=== PATIENT | male | born 1945 | race Caucasian/White ===

== ENCOUNTER 2016-12-23 19:51 | Inpatient (IN) | payer MEDICARE, BC ==
[~2016-12-23] VITALS: Ht 177.8 cm; Wt 111.4 kg
--- NOTE | ~2016-12-23 | CO ---
Unit #: [id number] #: [id number] Patient: CONCHITA ROWLAND [id number] [address] [place], [place] [address] [id number] I MR#: [id number] NAME: CONCHITA ROWLAND ROOM: 308 Age: 71 Sex: M Admission Date: 12/23/2016 : 1945 Attending Physician: Clemencia Mendenhall M.D. Primary Care Physician: Pedro Stockton D.O. CONSULTATION REPORT REASON FOR CONSULTATION COPD and pneumonia. HISTORY OF PRESENT ILLNESS Mr. Rowland is a 71-year-old gentleman, known to me with COPD. He had had significant shortness of breath, underwent pulmonary rehab and actually was doing better. Two days prior to admission. He had this anterior chest heaviness. He denied fever, sputum production, hemoptysis, or wheezing. Chest x-ray, may have showed a faint right lower lobe infiltrate, but because of his lack of symptoms he underwent CT angiography. It revealed no evidence of PE. There was evidence of right lower lobe infiltrate and some adenopathy consistent with his known diagnosis of leukemia. He does feel better today after treatment. PAST MEDICAL HISTORY Remarkable for COPD, leukemia coronary artery disease, arthritis obstructive sleep apnea on CPAP, hypertension, depression, hyperlipidemia. ALLERGIES No known medical allergies. MEDICATION She is on Symbicort twice a day, improves once a day as needed; albuterol, he has no oxygen. Other medications include, Howes, Pravachol, lisinopril, Norvasc, Neurontin, Wellbutrin, Cardura, aspirin, niacin, and a variety of other vitamins like medications. FAMILY HISTORY No familial lung disease. REVIEW OF SYSTEMS Quit smoking 31 years ago. Lives with his . Review of systems otherwise feels fairly well. No palpitations, abdominal pain, melena, hematochezia, hematemesis, hematuria, dysuria, focal weakness, paresthesias, leg pain, swelling. Further review of systems negative. PHYSICAL EXAMINATION GENERAL: Reveals a patient, who is in no acute distress on oxygen sitting on a side of the bed, eating lunch. VITAL SIGNS: She is afebrile. Pulse 76, respiratory rate 16, blood pressure is 119/50, 5 foot 10, 242 pounds. BMI is 34. HEENT: Pupils are equal, round, and reactive to light. Sclerae anicteric. Head atraumatic. He has natural teeth. Better in reasonable Unit #: [id number] #: [id number] Patient: CONCHITA ROWLAND dentition. NECK: Supple. No supraclavicular or cervical adenopathy appreciated. Mucous membranes moist. CHEST: Decreased breath sounds. No definite consolidation, wheeze or stridor. CARDIAC: Reveals distant heart tones. Regular rate and rhythm. No pathologic murmur, rub, or gallop. ABDOMEN: Soft and nontender. No hepatomegaly or rebound. EXTREMITIES: Reveal trace edema at best. No calf tenderness. NEUROLOGIC: Grossly intact. No focal motor or sensory deficits. SKIN: Warm and dry without rash or diaphoresis. LABORATORY DATA As above with likely right lower lobe pneumonia. His CMP was normal. BNP 103, INR 1.1. Cardiac enzymes negative. White blood cell count 12.4, hemoglobin 8.7, platelet count normal. Blood cultures performed and are pending. Rhythm strips or sinus. EKG no definite acute ischemic changes. IMPRESSION 1. Right lower lobe community-acquired pneumonia. 2. Acute respiratory failure currently on oxygen. 3. Chronic obstructive pulmonary disease. 4. Leukemia. 5. Medical problems listed above. PLAN He is clinically improved. We will continue his inhaled bronchodilators and IV antibiotics. We will check room air oxygenation needs, review my office notes, and continue CPAP. Thank you very much for allowing me to participate in the care of Mr. Rowland. Dictated by... Sang Koo M.D. LIZETTE/wilbert TD: 12/25/2016 12:39 JOB #: [id number] CONSULTATION REPORT Page 1 of 1 X Sang Koo MD X CONSULTATION REPORT
--- NOTE | ~2016-12-23 | EKG ---
PATIENT: CONCHITA DAMON UNIT #: [id number] Ventricular Rate: 68 BPM Atrial Rate: 68 BPM P-R Interval: 246 ms QRS Duration: 114 ms Q-T Interval: 390 ms QTC Calculation(Bezet): 414 ms P [place]: 46 degrees Calculated R [place]: 17 degrees Calculated T [place]: 12 degrees Diagnosis Line: Sinus rhythm with 1st degree A-V block Diagnosis Line: Non-specific intra-ventricular conduction delay Diagnosis Line: Borderline ECG Diagnosis Line: No previous ECGs available Diagnosis Line: Confirmed by LENNY KEENAN MD ([id number]) on Diagnosis Line: 12/24/2016 4:45:47 PM INTERPRETING MD: CAROLEE
--- NOTE | ~2016-12-23 | CT16 ---
[facility] A Service of [facility] & [facility] RADIOLOGY TEXT RESULTS PATIENT: CONCHITA DAMON LOCATION: C3A 308- : 47 UNIT #: [id number] AGE: [address]: Addis Cheung MD SEX: M ORDER DR: [id number] [facility] [address] [facility] [place]. [place], [place] [address] [id number] MR#: [id number] Acc #: [id number] NAME: CONCHITA DAMON : 1945 SEX: M STUDY DATE/TIME: 12/23/2016 22:57 UNIT: C3A PCU ROOM: 308 STUDY DESCRIPTION: CT Angio Chest for PE Attending Physician: Addis Cheung M.D. Ordering Physician: Chico Rubin M.D. Primary Care Physician: Pedro Stockton D.O. MEDICAL IMAGING REPORT This report is preliminary unless electronic signature is present EXAM CT angiogram chest with IV contrast HISTORY Chest pain for 1 day. Elevated D-dimer. TECHNIQUE IV contrast and CT angiogram of the chest was performed with 3-D reconstructions. This CT exam was performed with one or more of the following radiation dose reduction techniques: automatic exposure control, adjustment of mA and/or kV according to patient size, and iterative reconstruction. FINDINGS There is no evidence of pulmonary embolus. Exam sensitivity is partly limited by motion artifact compromising evaluation of the lower lobe pulmonary arteries. Normal-caliber pulmonary arteries bilaterally. Moderate multifocal patchy interstitial infiltrates in the bilateral lower lobes, could be infectious or inflammatory. Moderate bilateral axillary adenopathy, and [id number] adenopathy in the right supraclavicular fossa, upper mid and lower mediastinum, and bilateral rodri, and in the upper abdomen. Dairy Nutritionist nodes measure 2.9 cm in the right axilla, 2.2 cm left axilla, 1.6 cm right paratracheal, 2 cm mid right hilum, and 2.6 cm in the portocaval space. Patient history indicates leukemia and this could be the etiology of these nodes. No adenopathy is very similar to CT 03/04/2016. IMPRESSION 1. No pulmonary embolus. 2. Moderate patchy multifocal predominately interstitial infiltrates in the bilateral lower lobes, right greater than left could be STS. [facility] A Service of [facility] RADIOLOGY TEXT RESULTS PATIENT: CONCHITA DAMON LOCATION: C3A 308-01 : [birth year] UNIT #: [id number] AGE: [address]: Addis Cheung MD SEX: M ORDER DR: infectious or inflammatory. 3. Moderate adenopathy in the chest or upper abdomen is similar to CT 03/04/2016. This could be secondary to the patient's reported history of leukemia. Dictated by... Rory Rousseau M.D. THIS IS AN ELECTRONICALLY VERIFIED REPORT Rory Rousseau M.D. at 12/24/2016 6:14 AM YVETTE/chucho TD: 12/24/2016 05:54 JOB #: [id number] MEDICAL IMAGING REPORT Page 1 of 1 COPY
--- NOTE | ~2016-12-23 | DS ---
Unit #: [id number] #: [id number] Patient: CONCHITA DAMON [id number] [address] [address] [id number] I MR#: [id number] NAME: CONCHITA DAMON ROOM: 308 Age: 71 Sex: M Admission Date: 12/23/2016 : 1945 Discharge Date: 12/25/2016 Attending Physician: Clemencia Mendenhall M.D. Primary Care Physician: Pedro Stockton D.O. DISCHARGE SUMMARY REASON FOR ADMISSION Community-acquired pneumonia. HISTORY OF PRESENT ILLNESS/HOSPITAL COURSE Patient is a very pleasant 71-year-old male with a prior history of coronary artery disease, CML and COPD. Was admitted secondary to community-acquired pneumonia. Patient, through hospital course, underwent routine cardiac enzymes, which were negative, as well as routine laboratory studies that did show a mildly elevated white count, which was noted. He underwent a CTA chest, which did show bilateral lower lobe infiltrates, right greater than left. Appropriate adenopathy was also noted secondary to patient's prior history of CML. Routine laboratory studies were also ascertained, including blood cultures, which did not show any acute bacterial growth. We placed consultation to pulmonary services, as well as oncology services. From an oncology standpoint patient did undergo iron studies, which did reveal decreased iron. Therefore, he did receive IV iron prior to discharge, but appropriate outpatient followup was recommended with Dr. Palumbo at time of discharge. Dr. Koo recommended followup in 6 to 8 weeks for repeat chest x-ray in his office. Prescriptions for Zithromax, as well as Ceftin, were given prior to discharge. At this point in time patient is clinically stable for discharge home. FINAL DISCHARGE DIAGNOSES 1. Community-acquired pneumonia. 2. Acute hypoxic respiratory failure on admission, now resolved. 3. Chronic myelogenous leukemia. 4. Coronary artery disease. 5. Hypertension. 6. Chronic obstructive pulmonary disease. FINAL DISCHARGE MEDICATIONS 1. Tylenol 650 mg p.o. q.6 p.r.n. 2. ProAir HFA q.6 p.r.n. 3. Neurontin 600 mg p.o. q.6. 4. Ellipta 2 puffs daily. 5. Norvasc 5 mg p.o. daily. 6. Pravastatin 40 mg p.o. daily. 7. Cardura 8 mg daily. 8. Lisinopril 10 mg daily. Unit #: [id number] #: [id number] Patient: CONCHITA DAMON 9. Multivitamin daily. 10. Aspirin 81 mg daily. 11. [place] 7.5/325 one tablet p.o. b.i.d. p.r.n. 12. Zithromax 250 mg p.o. daily x4 days. 13. Ceftin 500 mg 1 tablet p.o. b.i.d. x5 days. DISCHARGE CONDITION Stable. DISCHARGE DISPOSITION Home. FOLLOW UP Followup as outlined above. Dictated by... Isha Carney/alf TD: 12/27/2016 18:19 JOB #: [id number] DISCHARGE SUMMARY Page 1 of 1 X Clemencia Mendenhall MD X DISCHARGE SUMMARY
--- NOTE | ~2016-12-23 | CR72 ---
[facility] A Service of [facility] & [facility] RADIOLOGY TEXT RESULTS PATIENT: CONCHITA DAMON LOCATION: A 308- : 47 UNIT #: [id number] AGE: [address]: Clemencia Mendenhall MD SEX: M ORDER DR: [id number] [facility] [address] [facility]. [place], [place] [address] [id number] MR#: [id number] #: [id number] NAME: CONCHITA DAMON : 1945 SEX: M STUDY DATE/TIME: 12/23/2016 20:22 UNIT: A U ROOM: [facility] STUDY DESCRIPTION: CR Chest Single View Portable Attending Physician: Addis Cheung M.D. Ordering Physician: Chico Rubin M.D. Primary Care Physician: Pedro Stockton D.O. MEDICAL IMAGING REPORT This report is preliminary unless electronic signature is present EXAM Portable chest HISTORY Shortness of air, chest pain, symptoms since yesterday. COMPARISON 03/27/2010 FINDINGS Portable view of the chest demonstrates patchy airspace opacity right lower lobe may represent some early pneumonia or focal edema. No effusions. Heart size within normal limits in this patient post median sternotomy. The right hilar calcifications compatible with prior granulomas disease. No pneumothorax. Dictated by... Marisela Vázquez M.D. THIS IS AN ELECTRONICALLY VERIFIED REPORT Marisela Vázquez M.D. at 12/24/2016 6:55 PM Delma TD: 12/24/2016 04:35 JOB #: [id number] MEDICAL IMAGING REPORT Page 1 of 1 COPY
--- NOTE | ~2016-12-23 | HP ---
Unit #: [id number] #: [id number] Patient: CONCHITA DAMON 194092 [address] [address] [id number] MR#: [id number] NAME: CONCHITA DAMON ROOM: Age: 71 Sex: M Admission Date: 12/23/2016 : 1945 Attending Physician: Chico Rubin M.D. Primary Care Physician: Pedro Stockton D.O. HISTORY AND PHYSICAL CHIEF COMPLAINT Atypical chest pain with right lower lobe infiltrate. HISTORY OF PRESENT ILLNESS This pleasant 71-year-old male with CAD, chronic myelomonocytic leukemia, and COPD is admitted for probable community-acquired pneumonia. The patient states that he was well until three days prior to admission when he developed chest tightness with a pleuritic component. Notes increasing shortness of breath, fatigue, and weakness. He does have some head congestion but denies true cough, fevers, sweats, or chills. He presented to this emergency department tonight afebrile. Chest x-ray does show a right lower lobe infiltrate. Initially, patient did have reproducible chest wall tenderness which has resolved after receiving morphine. EKG and cardiac enzymes are negative, and chest x-ray does show a right lower lobe infiltrate. In the ER, he was treated with aspirin, morphine, Zithromax, and Rocephin, and referred for admission. A CTA is planned. PAST MEDICAL HISTORY 1. Non-STEMI June 2003 with significant LAD and RCA disease and with normal LV function. The patient is status post two-vessel CABG in 2003. 2. Chronic myelomonocytic leukemia not requiring treatment with chronic anemia. 3. DJD and peripheral neuropathy. 4. Obstructive sleep apnea, on CPAP. 5. COPD. 6. Hypertension. 7. Depression. 8. Hyperlipidemia. 9. Right elbow surgery. 10. Arthroscopic knee surgery. 11. Patient is legally blind. ALLERGIES No known drug allergies. HOME MEDICATIONS 1. [place] 7.5/325 b.i.d. p.r.n. 2. Pravachol 40 mg daily. 3. Lisinopril 10 mg daily. 4. Norvasc 5 mg daily. 5. Neurontin 600 mg q.i.d. Unit #: [id number] #: [id number] Patient: CONCHITA DAMON 6. Wellbutrin 150 mg daily. 7. Cardura 8 mg daily. 8. Aspirin 81 mg daily. 9. Niacin 500 mg daily. 10. Fish oil 300 mg daily. 11. Multivitamins daily. 12. ProAir q.i.d. p.r.n. 13. Incruse Ellipta 2 puffs daily. FAMILY HISTORY CAD. SOCIAL HISTORY The patient lives with his . He stopped smoking 31 years ago. He drinks occasional alcohol. REVIEW OF SYSTEMS Notable for chest discomfort, weakness, shortness of breath, COPD, obstructive sleep apnea, CAD, anemia, leukemia, hyperlipidemia, hypertension, above-mentioned surgeries. All other systems were reviewed and are otherwise negative. PHYSICAL EXAMINATION GENERAL: A pleasant, moderately obese, 68-year-old male currently in no acute distress. VITAL SIGNS: Temperature 98, pulse 70, respirations 16, blood pressure 151/49, and O2 saturation 95% initially but was 93% on 2 liters when I saw the patient. HEENT: Eyes PERRLA. Extraocular muscles are intact. Pharynx is benign. NECK: Supple without adenopathy or thyromegaly. CHEST: Clear. Patient initially had chest wall tenderness which reproduced his chest pain. I am examining him after morphine, and his chest wall tenderness has resolved. CARDIAC: Normal S1 and S2 without S3, S4, or murmur. ABDOMEN: Bowel sounds are present. No hepatosplenomegaly, tenderness, or masses. EXTREMITIES: Without clubbing, cyanosis, or edema. Pedal pulses are present. NEUROLOGIC: Patient is awake, alert, and oriented. Cranial nerves are intact. Equal strength throughout. DIAGNOSTIC STUDIES LABORATORY: Hematocrit is 28.3, down from 30.5 last year, MCV 99.1, white blood count is 12.7 with increased lymphocytes and monocytes noted. Cardiac markers are negative. Coags are normal. Elevated D-dimer. SMA-12 normal. BNP is 103 which is minimally elevated. IMAGING: Chest x-ray right lower lobe infiltrate. CARDIOLOGY: EKG sinus rhythm, rate 68, fairly normal appearing except for an interventricular conduction delay. ASSESSMENT 1. Atypical chest pain with right lower lobe infiltrate likely representing community-acquired pneumonia. However, the patient does not have a cough or fever. 2. CAD, status post two-vessel CABG in 2003 with normal ejection fraction. No ischemia on EKG and first set of cardiac enzymes is Unit #: [id number] #: [id number] Patient: CONCHITA DAMON negative. 3. Essential hypertension. 4. Chronic myelomonocytic leukemia, currently not being treated, with chronic anemia followed by Dr. Mehrdad Palumbo. 5. DJD and peripheral neuropathy with chronic pain. 6. Obstructive sleep apnea and COPD. PLANS 1. Rocephin, Zithromax, and albuterol pending cultures. 2. CTA of the chest is planned. 3. DVT prophylaxis. 4. Further plans after CTA results. 1. Dictated by Addis Cheung M.D. AML/am TD: 12/23/2016 22:19 JOB #: [id number] HISTORY AND PHYSICAL Page 1 of 1 X Addis Cheung MD X HISTORY AND PHYSICAL
--- NOTE | ~2016-12-23 | CO ---
Unit #: [id number] #: [id number] Patient: CONCHITA ROWLAND [id number] [address] [address] [id number] I MR#: [id number] NAME: CONCHITA ROWLAND ROOM: 308 Age: 71 Sex: M Admission Date: 12/23/2016 : 1945 Attending Physician: Clemencia Mendenhall M.D. Primary Care Physician: Pedro Stockton D.O. Consultation Date: 12/24/2016 CONSULTATION REPORT PRIMARY CARE PHYSICIAN Pedro Stockton D.O. REASON FOR CONSULTATION CLL and chronic myelomonocytic leukemia, please evaluate. HISTORY OF PRESENT ILLNESS Mr. Conchita Rowland is 71-year-old with a longstanding history of chronic lymphatic leukemia. More recently, on a bone marrow aspiration and biopsy on 10/09/2015, he was found to have chronic myelomonocytic leukemia. When seen in the office last on 10/14/2016, he was anemic with a hemoglobin of 9.6. He is now admitted with a 2 to 3 day history of retrosternal chest pain, which worsens with breathing with CT angio of the chest showing no pulmonary emboli, but bilateral infiltrates present in similar fashion since 02/2016 when he last had a CT angio of the chest. He presented to the emergency room thinking that this may be a coronary event given his history of coronary artery disease. His troponin level was less than 0.05 and CK-MB was 1.9. His BNP was 103, and repeat troponin and CK-MB were similarly low. Today, he feels somewhat better. 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 There was possibly atypical small B lymphocytic infiltrate less than 5% of marrow cells which is CD5 positive. Cytogenetics revealed a 9q abnormality typical of myeloid neoplasms. Other medical problems include degenerative joint disease, peripheral neuropathy which he takes Neurontin, obstructive sleep apnea, hypertension, depression and COPD. ALLERGIES He has no known medication allergies. 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 HOME MEDICATIONS Unit #: [id number] #: [id number] Patient: CONCHITA ROWLAND Include [place] 7.5/325 b.i.d. p.r.n., Pravachol 40 mg daily, lisinopril 10 mg daily, Norvasc 5 mg daily, Neurontin 600 mg q.i.d., Wellbutrin 150 mg daily, Cardura 8 mg daily, aspirin 81 mg daily, niacin 500 mg daily, fish oil 300 mg daily, multivitamins, ProAir. FAMILY HISTORY Notable for coronary artery disease. No blood disorders. SOCIAL HISTORY Quit smoking 30 years ago. Rarely drinks any alcohol. He is . Lives his , who is at bedside. REVIEW OF SYSTEMS A 14-point review of systems were taken. CONSTITUTIONAL: Fatigue. No change in appetite and weight. 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 EARS, NOSE, MOUTH, AND THROAT: Negative. CARDIOVASCULAR: Chest pain as discussed. RESPIRATORY: As discussed. GASTROINTESTINAL: Negative. GENITOURINARY: Negative. MUSCULOSKELETAL: Knee pain which is somewhat better. ALLERGIC: Negative. NEUROLOGIC: Peripheral neuropathy. ENDOCRINE: Negative. PSYCHIATRIC: Negative. PHYSICAL EXAMINATION GENERAL: He is a pleasant, elderly man, lying in bed, currently in no distress. VITAL SIGNS: Temperature is 98.3, pulse is 76, respirations 16, blood pressure 119/50, O2 saturation is 97% on room air. HEENT: Shows pupils are equal and reactive well to light. He is pale, but not icteric. Mucous membranes are moist. NECK: Without adenopathy, JVD, or thyromegaly. CARDIOVASCULAR: First and second heart sounds are heard and regular without murmurs, gallops, or rubs. LUNGS: Chest expansion is symmetric and bilateral equal air entry. ABDOMEN: Soft and nontender. Liver and spleen are not palpable. EXTREMITIES: Warm and good pulses. No edema, cyanosis or clubbing. NEUROLOGIC: He is awake, alert, and oriented x3 without any focal findings. LYMPHATIC: He has bilateral axillary lymph nodes easily palpable, but the largest on right side measuring about 1 to 2 inches. No inguinal adenopathy. PSYCHIATRIC: Normal affect. DIAGNOSTIC STUDIES LABORATORY RESULTS: CBC with a white count of 12.7, absolute lymphocyte count is 8100, monocytes 2100, hemoglobin is 9.4, currently 8.6, platelet count is 195,000. BNP is 103. IMAGING STUDIES: CT angio of the chest was personally reviewed by me and compared with the previous CT scan done in 02/2016. He has bilateral axillary, hilar and mediastinal lymph nodes all of which are essentially stable compared to previously. ASSESSMENT AND PLAN Unit #: [id number] #: [id number] Patient: CONCHITA ROWLADN is a 71-year-old with a history of more long-standing chronic lymphatic leukemia, who has more recently has chronic myelomonocytic leukemia with anemia. He is admitted with retrosternal pleuritic type of chest pain with acute coronary event being ruled out with negative troponin, CK-MB and today he feels better on antibiotics and inhaled bronchodilators. He is anemic which is in part responsible for shortness of breathing and I discussed with him if his hemoglobin continues to decrease, he may be candidate for Procrit for chronic myelomonocytic leukemia, which is a myelodysplastic syndrome and may require a repeat bone marrow evaluation. Discussed about re-evaluation for gout and iron studies, and we discussed about the etiologies of chest pain, which probably is acute viral bronchitis. I also had a detailed discussion of chronic myelomonocytic leukemia and how this diagnosis overshadowed his previous diagnosis of CLL, which is yet to be treated or may never need to be. Thank you for allowing me to participate in his care. Dictated by... Isha Kern/wilbert TD: 12/25/2016 06:28 JOB #: [id number] CONSULTATION REPORT Page 1 of 1 X Florentin Up MD CONSULTATION REPORT
[~2016-12-23 19:51] MED LIST: AMLODIPINE BESYL5 MG PO; ASPIRIN EC81 M1 PO; ASPIRIN PO; ASPIRIN81 M1 PO; BUPROPION HCL150 M2 PO; CARDURA8 MG PO; CYMBALTA PO; FISH OIL 1,0001 EAC1 PO; FISH OIL 1,001000 M1 PO; FISH OIL300 MG PO; GABAPENTIN300 MG PO; HAIR, SKIN & N1 EAC1 PO; HYDROCODON-ACE1 EAC9 PO; INCRUSE ELLI62.5 MCG INH; LISINOPRIL PO; LISINOPRIL10 MG PO; MEDROL PO; MOBIC PO; NEURONTIN300 MG PO; NIACIN500 M1 PO; NIACIN500 M2 PO; NORVASC PO; PRAVASTATIN SOD40 MG PO; PROAIR HFA8.5 GM INH; SKELAXIN PO; SYMBICORT INH; TYLOX 5/500 CAP1 CAP PO; VICODIN 5/500 T1 TAB PO; VICODIN ES 7.51 EAC1 PO; VITAMIN D-32000 UNIT PO; ZOCOR PO
[2016-12-23 20:45] LABS: BASOPHIL% 0.2 % (0-2.5); EOSINOPHIL# 0.3 X10e3 (0-0.7); EOSINOPHIL% 2.2 % (0.0-7.0); HEMATOCRIT 28.3 % (38.0-50.0); HEMOGLOBIN 9.4 gm/dL (13.0-16.0); LYMPHOCYTE# 8.1 X10e3 (1.0-3.5); LYMPHOCYTE% 63.9 % (17.0-45.0); MEAN CELL VOLUME 99.1 FL (83-96); MEAN CORPUSCULAR HEMOGLOBIN 32.8 PG (28-34); MEAN CORPUSCULAR HGB CONC 33.1 g/dL (30-36); MEAN PLATELET VOLUME 9.1 FL (6.5-11.5); MONOCYTE# 2.1 X10e3 (0-1.0); MONOCYTE% 16.3 % (3.0-12.0); NEUTROPHIL# 2.2 X10e3 (1.5-7.1); NEUTROPHIL% 17.4 % (40-75); PLATELET COUNT 195 X10e3 (140-420); RED BLOOD COUNT 2.85 X10e (3.90-5.60); WHITE BLOOD COUNT 12.7 X10e3 (4.0-10.5)
[2016-12-23 20:46] LABS: POC - CKMB 1.9 ng/mL (0.0-7.9); POC - TROPONIN <0.05 ng/mL (<=0.05)
[2016-12-23 20:46] LABS: DIFF IND YES
[2016-12-23 20:58] LABS: INR 1.1; PARTIAL THROMBOPLASTIN TIME 29.1 SECONDS (23.5-31.3); PROTHROMBIN TIME (PATIENT) 11.9 SECONDS (10.0-11.7)
[2016-12-23 21:06] LABS: ALBUMIN SERUM 4.3 g/dL (3.5-5.0); BILIRUBIN, DIRECT 0.1 mg/dL (0.0-0.2); BILIRUBIN,INDIRECT 0.6 mg/dL (0.0-0.9); BILIRUBIN,TOTAL 0.7 mg/dL (0.2-2.0); CALCIUM SERUM 8.5 mg/dL (8.4-10.2); GLOM FILT RATE Estimated 76.5 mL/min (>60); POTASSIUM 3.7 mmol/L (3.5-5.1); PROTEIN TOTAL SERUM 8.1 g/dL (6.0-8.3)
[2016-12-23 21:09] LABS: PLATELET ESTIMATE NORMAL (NORMAL)
[2016-12-23] MEDS ORDERED: INCRUSE ELLI62.5 MCG INH (21:19)
[2016-12-23 21:56] LABS: POC - CKMB 1.7 ng/mL (0.0-7.9); POC - TROPONIN <0.05 ng/mL (<=0.05)
[2016-12-24 04:53] LABS: %MB 2.5 % (0.0-4.0); MB 2.7 ng/ml
[2016-12-24 11:39] LABS: %MB 2.2 % (0.0-4.0); MB 1.9 ng/ml
[2016-12-24 12:24] LABS: BUN/CREATININE RATIO 14.44; CALCIUM SERUM 8.3 mg/dL (8.4-10.2); CREATININE SERUM 0.9 mg/dL (0.6-1.4); GLOM FILT RATE Estimated 86.8 mL/min (>60); POTASSIUM 3.9 mmol/L (3.5-5.1)
[2016-12-24 12:29] LABS: HEMATOCRIT 25.7 % (38.0-50.0); HEMOGLOBIN 8.7 gm/dL (13.0-16.0); MEAN CELL VOLUME 100.2 FL (83-96); MEAN CORPUSCULAR HEMOGLOBIN 33.8 PG (28-34); MEAN CORPUSCULAR HGB CONC 33.8 g/dL (30-36); RED BLOOD COUNT 2.57 X10e (3.90-5.60); RED CELL DISTRIBUTION WIDTH 16.8 % (11.0-15.5); WHITE BLOOD COUNT 12.4 X10e3 (4.0-10.5)
[2016-12-25 05:20] LABS: HEMATOCRIT 27.7 % (38.0-50.0); HEMOGLOBIN 9.2 gm/dL (13.0-16.0); MEAN CELL VOLUME 99.4 FL (83-96); MEAN CORPUSCULAR HEMOGLOBIN 32.9 PG (28-34); MEAN CORPUSCULAR HGB CONC 33.1 g/dL (30-36); MEAN PLATELET VOLUME 9.5 FL (6.5-11.5); RED BLOOD COUNT 2.79 X10e (3.90-5.60); RED CELL DISTRIBUTION WIDTH 16.9 % (11.0-15.5); WHITE BLOOD COUNT 13.5 X10e3 (4.0-10.5)
[2016-12-25 06:08] LABS: BUN/CREATININE RATIO 17.77; CALCIUM SERUM 8.6 mg/dL (8.4-10.2); CREATININE SERUM 0.9 mg/dL (0.6-1.4); GLOM FILT RATE Estimated 86.8 mL/min (>60); POTASSIUM 4.6 mmol/L (3.5-5.1)
[2016-12-25 06:28] LABS: FERRITIN 106 ng/mL (24-336)
[2016-12-25 06:44] LABS: URIC ACID 6.9 mg/dL (2.6-7.2)
[2016-12-25] MEDS ORDERED: ZITHROMAX PO (11:08)
[2016-12-25] MEDS ORDERED: CEFTIN PO (11:08)
[2016-12-25] MEDS ORDERED: ACETAMINOPHEN325 MG PO (12:41)
== END 2016-12-25 17:30 | disposition home or self-care (01) | DRG 190 ==
LOC: CED 19:51 → CEDOF 22:00 → CED 22:10 → CEDOF 22:10 → SEDOF 22:21 → CED 22:21 → CEDOF 22:21 → C3A PCU 12-24 00:39 → CEDOF 12-24 00:39 → C3A PCU 12-24 08:06
PROVIDERS: Emergency Medicine; Family Medicine; Internal Medicine; Internal Medicine Hematology & Oncology
DX: J44.0 Chronic obstructive pulmonary disease with (acute) lower respiratory infection (principal); J18.9 Pneumonia, unspecified organism; J96.01 Acute respiratory failure with hypoxia; C93.10 Chronic myelomonocytic leukemia not having achieved remission; I25.10 Atherosclerotic heart disease of native coronary artery without angina pectoris; H54.8 Legal blindness, as defined in USA; I10 Essential (primary) hypertension; M19.90 Unspecified osteoarthritis, unspecified site; G62.9 Polyneuropathy, unspecified; G47.33 Obstructive sleep apnea (adult) (pediatric); F32.9 Major depressive disorder, single episode, unspecified; Z87.891 Personal history of nicotine dependence; I25.2 Old myocardial infarction; E78.5 Hyperlipidemia, unspecified; E66.9 Obesity, unspecified; Z95.1 Presence of aortocoronary bypass graft; G89.29 Other chronic pain; E61.1 Iron deficiency
CPT/HCPCS: 36415; 71010; 71275; 80048; 80076; 82550; 82553; 82607; 82728; 82947; 83036; 83540; 83550; 83880; 84484; 84550; 85025; 85027; 85379; 85610; 85730; 87040; 93005; 94640; 94760; 96374; 99285; J0456; J0696; J1040; J1650; J1815; J2270; J2916; J2930; Q9967